=== PATIENT | male | born 1955 | race Caucasian/White ===

== ENCOUNTER 2020-11-11 06:43 | Outpatient (CLI) | payer OTHER, SELFPAY ==
--- NOTE | ~2020-11-11 | XR_ITS ---
XR hip BI wo pelvis 11/11/2020 07:07 Indication: Muscle weakness Procedure: 3 views each hip Comparison: No prior studies for comparison. Findings: There is mild symmetric osteoarthritis of the hips. No fracture, subluxation or dislocation . Normal mineralization. There is osteitis pubis. Impression: 1: Mild bilateral symmetric osteoarthritis of the hips. Reviewed, dictated and finalized at location B. Impression: 1: Mild bilateral symmetric osteoarthritis of the hips.
--- NOTE | ~2020-11-11 | XR_ITS ---
XR knee RT 3V, XR knee LT 3V 11/11/2020 07:07 Indication: Muscle weakness. Knee pain. Procedure: 3 views each knee Comparison: No prior studies for comparison. Findings: There is moderate right and mild left tricompartment osteoarthritis. No acute fracture or t raumatic malalignment. No significant joint effusion. No foreign bodies. Impression: 1: Bilateral tricompartment osteoarthritis of the knees, right greater than left. Reviewed, dictated and finalized at location B. Impression: 1: Bilateral tricompartment osteoarthritis of the knees, right greater than lef t. Impression: 1: Bilateral tricompartment osteoarthritis of the knees, right greater than lef t.
== END 2020-11-11 06:44 | disposition home or self-care (01) ==
PROVIDERS: PCP Family Medicine; Visit Provider Family Medicine
DX: M25.50 Pain in unspecified joint (principal); M62.81 Muscle weakness (generalized); R26.81 Unsteadiness on feet; R26.89 Other abnormalities of gait and mobility
CPT/HCPCS: 73521; 73562

== ENCOUNTER 2020-12-25 08:34 | Outpatient (CLI) | payer OTHER, SELFPAY ==
--- NOTE | ~2020-12-25 | NM_ITS ---
EXAMINATION: NM bone scan whole body DATE: 12/25/2020 12:10 INDICATION: Prostate cancer. TECHNIQUE: 25 mCi Tc-99m HDP was administered intravenously. Delayed whole-body scintigrams were obt ained. COMPARISON: Knee and pelvis radiographs 11/11/2020 FINDINGS: There is joint-centered increased activity in the shoulders, sternoclavicular joints, lumba r spine, knees, and right foot, consistent with osteoarthritis and lumbar spondylosis. IMPRESSION: 1. No evidence of metastatic disease. Reviewed, dictated and finalized at location A.
== END 2020-12-25 08:35 | disposition home or self-care (01) ==
PROVIDERS: PCP Family Medicine; Visit Provider Urology
DX: C61 Malignant neoplasm of prostate (principal)
CPT/HCPCS: 78306; A9561